=== PATIENT | female | born 1990 | race African-American/Black ===

== ENCOUNTER 2018-04-16 18:28 | Emergency (ER) | payer OTHER ==
[2018-04-16] MEDS ORDERED: Sodium Chloride 0.9% 1,000 ML IV ONE (18:38)
[2018-04-16] MEDS ORDERED: LORazepam 2 MG/ML SDV IVPUSH ONE (18:38)
[2018-04-16] MEDS ORDERED: Sodium Chloride 0.9% 10 ML Syringe FLUSH PRN (18:39)
[2018-04-16] MEDS ORDERED: lamoTRIgine 100 MG Tab PO ONE ×2 (18:39→19:50)
--- NOTE | 2018-04-16 19:00 | EDM.PDOC ---
ED HPI GENERAL MEDICAL PROBLEM - General Chief Complaint: Neurological Problem Stated Complaint: [facility] Time Seen by Provider: 04/16/18 18:35 Source of Information: Reports: Patient, EMS History Limitations: Reports: No Limitations - History of Present Illness INITIAL COMMENTS - FREE TEXT/NARRATIVE: 27 year old female presents via [facility] for evaluation and treatment following a seizure. Patient has a history of seizures. She was supposed to receive her seizure medications in the mail yesterday but missed the mail. Missed a dose of her seizure medication today. Patient reports at the time of her seizure she was sitting on the couch on her phone. No falls or trauma. Reports localized shaking to her arms. Unsure exactly how long the seizure lasted. Seizure was unwitnessed. Reports this was a normal seizure for her. No seizure witnessed bby EMS. No medication given by EMS. Patient reports feeling foggy and weak. No headache, nausea, vomiting, tongue biting or urinary incontinence. No recent cough, fevers or chills. Patient is normally on lamictal 250mg qam an 300mg qpm. Onset: Today, Sudden - Related Data Allergies Allergy/AdvReac Type Severity Reaction Status Date / Time No Known Allergies Allergy Verified 03/05/14 21:53 Home Meds: Home Meds lamoTRIgine [LaMICtal XR] 300 mg PO BEDTIME 03/05/14 [History] lamoTRIgine [Lamictal] 250 mg PO DAILY 04/16/18 [History] lamoTRIgine [Lamotrigine] 100 mg PO BID #40 tablet 04/16/18 [Rx] Past Medical History Musculoskeletal History: Reports: Other (See Below) Other Musculoskeletal History: right knee scope Neurological History: Reports: Seizure Social & Family History - Tobacco Use Smoking Status *Q: Never Smoker - Caffeine Use Caffeine Use: Reports: Coffee, Soda - Recreational Drug Use Recreational Drug Use: No ED ROS GENERAL - Review of Systems Review Of Systems: See Below Constitutional: Reports: Fatigue, Other ("fogy"). Denies: Fever, Chills Respiratory: Denies: Cough GI/Abdominal: Denies: Nausea, Vomiting : Denies: Incontinence Neurological: Reports: Numbness (to the arms with the seizure now resolved), Seizure, Tingling (to the arms wiht the seizure now resolved). Denies: Headache - Physical Exam Exam: See Below Exam Limited By: No Limitations General Appearance: Alert, WD/WN, No Apparent Distress Eye Exam: Bilateral Eye: Normal Inspection, PERRL Ears: Normal External Exam Nose: Normal Inspection Throat/Mouth: Normal Inspection, Normal Lips, Normal Voice, No Airway Compromise. No: Evidence of Tongue Biting Head Exam: Atraumatic, Normocephalic Neck: Normal Inspection Respiratory/Chest: No Respiratory Distress, Lungs Clear, Normal Breath Sounds Cardiovascular: Normal Peripheral Pulses, Regular Rate, Rhythm, No Murmur GI/Abdominal: Soft, Non-Tender Neuro Exam (Abbreviated): Alert, Oriented, Normal Cognition Psychiatric: Normal Affect, Normal Mood Skin Exam: Warm, Dry, Normal Color Course - Vital Signs Last Recorded V/S: Last Vital Signs Temp 98.9 F 04/16/18 19:32 Pulse 102 H 04/16/18 19:32 Resp 18 04/16/18 19:32 BP 101/57 L 04/16/18 19:32 Pulse Ox 99 04/16/18 19:32 - Orders/Labs/Meds Labs: Laboratory Tests 04/16/18 04/16/18 Range/Units 18:45 18:45 WBC 7.03 (3.98-10.04) K/mm3 RBC 4.32 (3.98-5.22) M/mm3 Hgb 13.5 (11.2-15.7) gm/L Hct 38.8 (34.1-44.9) % MCV 89.8 (79.4-94.8) fl MCH 31.3 (25.6-32.2) pg MCHC 34.8 (32.2-35.5) g/dl RDW Std Deviation 37.8 (36.4-46.3) fL Plt Count 286 (182-369) K/mm3 MPV 8.5 L (9.4-12.3) fl Neut % (Auto) 45.4 (34.0-71.1) % Lymph % (Auto) 42.8 (19.3-51.7) % Imperial % (Auto) 7.5 (4.7-12.5) % Eos % (Auto) 3.7 (0.7-5.8) Baso % (Auto) 0.6 (0.1-1.2) % Neut # (Auto) 3.19 (1.56-6.13) K/mm3 Lymph # (Auto) 3.01 (1.18-3.74) K/mm3 Imperial # (Auto) 0.53 H (0.24-0.36) K/mm3 Eos # (Auto) 0.26 (0.04-0.36) K/mm3 Baso # (Auto) 0.04 (0.01-0.08) K/mm3 Sodium 142 (136-145) mEq/L Potassium 3.3 L (3.5-5.1) mEq/L Chloride 105 (98-107) mEq/L Carbon Dioxide 25 (21-32) mEq/L Anion Gap 15.3 H (5-15) BUN 13 (7-18) mg/dL Creatinine 1.2 H (0.55-1.02) mg/dL Est Cr Clr Drug Dosing 72.29 mL/min Estimated GFR (MDRD) > 60 (>60) mL/min BUN/Creatinine Ratio 10.8 L (14-18) Glucose 103 (74-106) mg/dL Calcium 8.9 (8.5-10.1) mg/dL Total Bilirubin 0.4 (0.2-1.0) mg/dL AST 17 (15-37) U/L ALT 19 (14-59) U/L Alkaline Phosphatase 54 (46-116) U/L Total Protein 7.4 (6.4-8.2) g/dl Albumin 3.6 (3.4-5.0) g/dl Globulin 3.8 gm/dL Albumin/Globulin Ratio 1.0 (1-2) Meds: Medications Discontinued Medications Generic Name Dose Route Start Last Admin Trade Name Freq PRN Reason Stop Dose Admin Sodium Chloride 1,000 mls @ 999 mls/hr 04/16/18 18:38 04/16/18 18:48 Normal Saline IV 04/16/18 19:38 999 mls/hr ONETIME ONE Administration Lamotrigine 300 mg 04/16/18 18:39 04/16/18 18:49 Lamotrigine PO 04/16/18 18:40 300 mg ONETIME ONE Administration Lamotrigine 250 mg 04/16/18 19:50 04/16/18 19:56 Lamotrigine PO 04/16/18 19:51 250 mg ONETIME ONE Administration Lorazepam 1 mg 04/16/18 18:38 04/16/18 18:48 Ativan IVPUSH 04/16/18 18:39 1 mg ONETIME ONE Administration Potassium Chloride 20 meq 04/16/18 19:50 04/16/18 19:57 Klor-Con M20 PO 04/16/18 19:51 20 meq ONETIME ONE Administration Sodium Chloride 10 ml 04/16/18 18:39 04/16/18 18:50 Saline Flush FLUSH 10 ml ASDIRECTED PRN Administration Keep Vein Open - Re-Assessments/Exams Free Text/Narrative Re-Assessment/Exam: 04/16/18 19:43 Patient feeling better. Given 1mg ativan IV and 300mg PO lamictal. Potassium 20meq given for slightly low potassium. 1 L fluid also given. Will discharge home at this point. Patient has someone coming to pick her up. Will give 250mg lamictal for her to jose in the morning in case [facility] Rx for lam[facility]al given for 7 days. Discharge instructions as documented. Departure - Departure Time of Disposition: 19:51 Disposition: Home, Self-Care 01 Condition: Good Clinical Impression: Seizure - Discharge Information Prescriptions: lamoTRIgine [Lamotrigine] 100 mg PO BID #40 tablet Instructions: Seizure, Adult, [id number] Referrals: PCP,Not In Area [Primary Care Provider] - Forms: ED Department Discharge Additional Instructions: Continue with your current plan of care. Take lamotrigine 250 mg by mouth in the morning and 300 mg by mouth in the evening. You were given at 300 mg dose tonight in the ED. A 250 mg supply will be given for you to take tomorrow morning. Fill your prescription either tonight or tomorrow. [facility] open at noon. You were given Ativan in the ED, this may make you drowsy. It is not recommended that you drive while you are on Ativan. make sure you are drinking plenty of fluids. Please return to ER if your symptoms change or worsen.
[2018-04-16] MEDS ORDERED: Potassium Chloride 20 MEQ Tab.ER PO ONE (19:50)
== END 2018-04-16 20:10 | disposition home or self-care (01) ==
LOC: JD.ED 18:28
DX: R56.9 Unspecified convulsions (principal); Z79.899 Other long term (current) drug therapy
CPT/HCPCS: 36415; 80053; 80175; 85025; 96361; 96374; 99285; A9270; J2060; J7040; J7050; 99284